=== PATIENT | female | born 1980 | race Asian ===

== ENCOUNTER → 2017-09-03 | Outpatient (CLI) | payer BC | LOC: OD 17:11 | PROVIDERS: ATTEND Student in an Organized Health Care Education/Training Program | DX: O02.1 Missed abortion (principal) | CPT/HCPCS: 36415; 84702 ==

== ENCOUNTER → 2017-09-10 | Outpatient (CLI) | payer BC | LOC: OD 16:32 | PROVIDERS: ATTEND Student in an Organized Health Care Education/Training Program | DX: O02.1 Missed abortion (principal) | CPT/HCPCS: 36415; 84702 ==